=== PATIENT | female | born 1940 | race Two or more races ===

== ENCOUNTER 2021-01-25 06:18 | Day surgery (SDC) | payer OTHER ==
[~2021-01-25 06:18] MED LIST: ATROVASTATIN PO; ELIQUIS5 MG PO; LASIX20 MG PO; TENORMIN100 M1 PO; VALSARTAN-HCTZ1 EAC4 PO; VITAMIN B12 PO; ZETIA10 MG PO
[2021-01-25] MEDS ORDERED: ASA325 M1 PO (12:11)
[2021-01-25] MEDS ORDERED: DUI500 PO (12:11)
[2021-01-25] MEDS ORDERED: PERCOCET 5-3251 EACH PO (12:11)
[2021-01-25] MEDS ORDERED: WHEELCHAIR (12:13)
[2021-01-25] MEDS ORDERED: WALKER (12:15)
== END 2021-01-25 16:30 | disposition home or self-care (01) ==
LOC: CIR.AMB 06:18
PROVIDERS: ATTEND Orthopaedic Surgery
DX: S82.242A Displaced spiral fracture of shaft of left tibia, initial encounter for closed fracture (principal); S93.422A Sprain of deltoid ligament of left ankle, initial encounter; Z20.822 Contact with and (suspected) exposure to COVID-19
CPT/HCPCS: 27814; 20902; 27695; C1776